=== PATIENT | male | born 1995 | race Caucasian/White ===

== ENCOUNTER 2018-04-07 00:07 | Emergency (ER) | payer SELFPAY ==
[~2018-04-07] VITALS: Ht 167.6 cm; Wt 65.0 kg
[~2018-04-07 00:07] MED LIST: Z.0.NO CURRENT MEDS
[2018-04-07] MEDS ORDERED: IOHEXOL 350 MG/ML 10 ML VIAL (for RAD DIAG) IVCONTRAST ONE (00:08)
[2018-04-07 00:11] VITALS: BP 182/87; PULSE 106; RESP 18; TEMP 98.9; O2SAT 100
[2018-04-07] MEDS ORDERED: TETANUS/DIPHTHERIA TOXOID ADULT 0.5 ML VIAL IM ONE (00:30)
--- NOTE | 2018-04-07 00:33 | PD ---
HPI Chief Complaint: Injury Time Seen by Provider: 00:24 (Jeanine Rivera MD) Time Seen by Provider: 00:24 (Kerwin Taylor) Travel History International Travel<30 days: No Contact w/Intl Traveler<30days: No Traveled to known affect area: No (Jeanine Rivera MD) History of Present Illness HPI 23-year-old male came to the emergency room for left foot swelling after he was walking barefoot in a backyard and felt something poke into his middle toe. This happened last night. Patient woke up this morning and could not feel his middle toe and noticed significant swelling of his toe as well as the foot. The swelling has persisted. Patient does not really complain of significant pain. He is here because of the swelling. Patient denies of any fever or chills. Patient was tachycardic in triage. He is otherwise a healthy person. Patient does not recall his last tetanus shot. (Jeanine Rivera MD) History Past Medical History Narrative Medical List of his past medical, surgical, social and family history is reviewed from the nursing note Medical History: Denies Significant Hx Tetanus Vaccination: < 5 Years Influenza Vaccination: No (Jeanine iRvera MD) Past Surgical History Surgical History: No Previous Surgery (Jeanine Rivera MD) Social History Alcohol Use: Yes (twice a week) Tobacco Use: Yes (Jeanine Rivera MD) Allergies-Medications (Allergen,Severity, Reaction): Coded Allergies: No Known Allergies (Verified Allergy, Mild, 04/07/18) Comments No known drug allergies. (Jeanine Rivera MD) Reported Meds & Prescriptions Reported Meds & Active Scripts Active Deltasone (Prednisone) 20 Mg Tab 20 Mg PO BID 5 Days (Kerwin Taylor) Narrative Medication List of his home medications reviewed from the nursing note (Jeanine Rivera MD) Review of Systems Except as stated in HPI: all other systems reviewed are Neg (Jeanine Rivera MD) Physical Exam Narrative GENERAL: Awake, alert, mildest SKIN: Focused skin assessment warm/dry. Left foot dorsum swollen and slightly erythematous and warm to touch. Middle toe appears to be swollen and erythematous and there is a punctum on the medial aspect of the toe between the first and the second toe. Wound is not significantly tender. Poor foot hygiene HEAD: Atraumatic. Normocephalic. EYES: Pupils equal and round. No scleral icterus. No injection or drainage. ENT: No nasal bleeding or discharge. Mucous membranes pink and moist. NECK: Trachea midline. No JVD. CARDIOVASCULAR: Regular rate and rhythm. No murmur appreciated. RESPIRATORY: No accessory muscle use. Clear to auscultation. Breath sounds equal bilaterally. GASTROINTESTINAL: Abdomen soft, non-tender, nondistended. Hepatic and splenic margins not palpable. MUSCULOSKELETAL: No obvious deformities. No clubbing. No cyanosis. No edema. NEUROLOGICAL: Awake and alert. No obvious cranial nerve deficits. Motor grossly within normal limits. Normal speech. PSYCHIATRIC: Appropriate mood and affect; insight and judgment normal. (Jeanine Rivera MD) Data Data Last Documented VS Vital Signs Date Time Temp Pulse Resp B/P (MAP) Pulse Ox O2 Delivery O2 Flow Rate FiO2 04/07/18 00:11 98.9 106 18 182/87 (118) 100 (Kerwin Taylor) Orders Orders Foot, Limited (2vws) (04/07/18 00:25) Tetanus/Diphtheria Tox Adult (Tetanus/Di (04/07/18 00:30) Complete Blood Count With Diff (04/07/18 00:33) Basic Metabolic Panel (Bmp) (04/07/18 00:33) C-Reactive Protein (Crp) (04/07/18 00:33) Westergren Sedimentation Rate (04/07/18 00:33) Iv Access Insert/Monitor (04/07/18 00:33) Blood Culture (04/07/18 00:33) Lactic Acid (04/07/18 00:36) Wound Culture And Gram Stain (04/07/18 00:38) Ct Foot W Iv Contrast (04/07/18 ) Vancomycin Inj (Vancomycin Inj) (04/07/18 00:45) Piperacil-Tazo 4.5 Gm Premix (Zosyn 4.5 (04/07/18 01:00) Iohexol 350 Inj (Omnipaque 350 Inj) (04/07/18 00:08) Diphenhydramine Inj (Benadryl Inj) (04/07/18 03:30) Methylprednisolone So Succ Inj (Solumedr (04/07/18 03:30) Ed Discharge Order (04/07/18 03:55) (Kerwin Taylor) Labs Laboratory Tests Test 04/07/18 00:48 White Blood Count 6.7 TH/MM3 Red Blood Count 4.56 MIL/MM3 Hemoglobin 15.4 GM/DL Hematocrit 44.0 % Mean Corpuscular Volume 96.6 FL Mean Corpuscular Hemoglobin 33.8 PG Mean Corpuscular Hemoglobin Concent 35.0 % Red Cell Distribution Width 13.1 % Platelet Count 269 TH/MM3 Mean Platelet Volume 8.2 FL Neutrophils (%) (Auto) 53.5 % Lymphocytes (%) (Auto) 36.1 % Monocytes (%) (Auto) 7.6 % Eosinophils (%) (Auto) 2.5 % Basophils (%) (Auto) 0.3 % Neutrophils # (Auto) 3.6 TH/MM3 Lymphocytes # (Auto) 2.4 TH/MM3 Monocytes # (Auto) 0.5 TH/MM3 Eosinophils # (Auto) 0.2 TH/MM3 Basophils # (Auto) 0.0 TH/MM3 CBC Comment DIFF FINAL Differential Comment Erythrocyte Sedimentation Rate 3 mm/hr Blood Urea Nitrogen 15 MG/DL Creatinine 1.03 MG/DL Random Glucose 112 MG/DL Calcium Level 9.4 MG/DL Sodium Level 139 MEQ/L Potassium Level 3.8 MEQ/L Chloride Level 101 MEQ/L Carbon Dioxide Level 29.5 MEQ/L Anion Gap 9 MEQ/L Estimat Glomerular Filtration Rate 90 ML/MIN Lactic Acid Level 2.0 mmol/L C-Reactive Protein LESS THAN 0.29 MG/DL (Kerwin Taylor) [facility] Medical Decision Making Medical Screen Exam Complete: Yes Emergency Medical Condition: Yes Medical Record Reviewed: Yes Differential Diagnosis Cellulitis, allergic reaction secondary to bug bite Narrative Course 12:44 AM x-ray of the foot and CT scan has been ordered. Blood test has been ordered. Awaiting for the test results to come back. Patient will be getting IV vancomycin and Zosyn. Wound culture has been collected. Case will be signed over to the PA in the part to follow-up. (Jeanine Rivera MD) Medical Screen Exam Complete: Yes Emergency Medical Condition: Yes Medical Record Reviewed: Yes Interpretation(s) Left foot: Negative for acute fracture. No foreign body. Positive soft tissue swelling. CT left foot: No obvious abscess or space-occupying lesion. Positive soft tissue swelling. Laboratory Tests Test 04/07/18 00:48 White Blood Count 6.7 TH/MM3 Red Blood Count 4.56 MIL/MM3 Hemoglobin 15.4 GM/DL Hematocrit 44.0 % Mean Corpuscular Volume 96.6 FL Mean Corpuscular Hemoglobin 33.8 PG Mean Corpuscular Hemoglobin Concent 35.0 % Red Cell Distribution Width 13.1 % Platelet Count 269 TH/MM3 Mean Platelet Volume 8.2 FL Neutrophils (%) (Auto) 53.5 % Lymphocytes (%) (Auto) 36.1 % Monocytes (%) (Auto) 7.6 % Eosinophils (%) (Auto) 2.5 % Basophils (%) (Auto) 0.3 % Neutrophils # (Auto) 3.6 TH/MM3 Lymphocytes # (Auto) 2.4 TH/MM3 Monocytes # (Auto) 0.5 TH/MM3 Eosinophils # (Auto) 0.2 TH/MM3 Basophils # (Auto) 0.0 TH/MM3 CBC Comment DIFF FINAL Differential Comment Erythrocyte Sedimentation Rate 3 mm/hr Blood Urea Nitrogen 15 MG/DL Creatinine 1.03 MG/DL Random Glucose 112 MG/DL Calcium Level 9.4 MG/DL Sodium Level 139 MEQ/L Potassium Level 3.8 MEQ/L Chloride Level 101 MEQ/L Carbon Dioxide Level 29.5 MEQ/L Anion Gap 9 MEQ/L Estimat Glomerular Filtration Rate 90 ML/MIN Lactic Acid Level 2.0 mmol/L C-Reactive Protein LESS THAN 0.29 MG/DL Differential Diagnosis Differential diagnosis: Puncture wound, cellulitis, abscess, necrotizing fasciitis, allergic reaction Narrative Course IV access is obtained. Patient is given a liter bolus of saline, vancomycin 1300 mg IV, 4.5 g of Zosyn IV. CBC, chemistry, CRP, and sed rate. Patient's laboratory tests have been reviewed. His CRP, sed rate and venous lactate are negative. White count is normal. X-ray of the foot as well as a CT scan are unremarkable except for soft tissue swelling. I suspect that this is more of allergic reaction from possible insect bite. I do not see any signs of any localized infection. His laboratory tests refute any infectious process. The patient is given Solu-Medrol 125 mg IV and Benadryl 50 mg IV. The patient will continue Benadryl and oral prednisone at home and recheck in 48 hours. This is left foot insect bite with local reaction (Kerwin Taylor) Procedures EKG Prior to Arrival: No (Jeanine Rivera MD) Diagnosis Primary Impression: Insect bite of toe of left foot with local reaction Qualified Codes: S90.465A - Insect bite (nonvenomous), left lesser toe(s), initial encounter; W57.XXXA - Bitten or stung by nonvenomous insect and other nonvenomous arthropods, initial encounter Referrals: [facility] 2 days Patient Instructions: General Instructions Departure Forms: Tests/Procedures, Work Release Special Instructions: No work 2 days Additional Instructions: Rest. Elevation above the heart at all times. Warm compresses. Daily wound care with soap and water. 50 mg of Benadryl 4 times a day. Prednisone. Recheck with a primary care doctor or the emergency department in 48 hours. Return to the ER sooner if any problems develop or worsening symptoms. Med/Other Pt SpecificInfo: Prescription(s) given (Kerwin Taylor) Scripts Prednisone (Deltasone) 20 Mg Tab 20 MG PO BID for 5 Days, #10 TAB 0 Refills Prov: Jeanine Rivera MD 04/07/18 Disposition: 01 DISCHARGE HOME Condition: Stable Jeanine Rivera MD April 07, 2018 00:33 Kerwin Taylor April 07, 2018 04:01
[2018-04-07] MEDS ORDERED: VANCOMYCIN INJ 1,300 MG in SODIUM CHLORID 0.9% 500 ML INJ 500 ML IV ONE (00:45)
[2018-04-07] MEDS ORDERED: PIPERACIL-TAZO 4.5 GM PREMIX 100 ML IV ONE (01:00)
--- NOTE | 2018-04-07 01:10 | RADRPT ---
EXAM DATE/TIME: 04/07/2018 00:36 [facility] COMPARISON: No previous studies available for comparison. INDICATIONS : Left foot pain with swelling across the metatarsal region. MEDICAL HISTORY : None. SURGICAL HISTORY : None. ENCOUNTER: Initial ACUITY: 2 days PAIN SCORE: 8/10 LOCATION: Left foot FINDINGS: A limited two-view examination of the left foot was obtained and demonstrates no evidence of fracture or malalignment. Metatarsals and phalanges are intact. There is mild soft tissue prominence over the dorsum of the foot with no radiopaque foreign body. CONCLUSION: Mild soft tissue swelling with no underlying bony abnormality. Casey Mary MD on April 07, 2018 at 1:07 Board Certified Radiologist. This report was verified electronically.
[2018-04-07 01:39] LABS: AUTOMATED NEUTROPHIL # 3.6 TH/MM3 (1.8-7.7); BASOPHIL % 0.3 % (0.0-2.0); EOSINOPHIL # 0.2 TH/MM3 (0-0.4); EOSINOPHIL % 2.5 % (0.0-4.0); HEMOGLOBIN 15.4 GM/DL (13.0-17.0); LYMPH % 36.1 % (9.0-44.0); LYMPHOCYTE # 2.4 TH/MM3 (1.0-4.8); MEAN CELL VOLUME 96.6 FL (80.0-100.0); MEAN CORPUSCULAR HEMOGLOBIN 33.8 PG (27.0-34.0); MEAN PLATELET VOLUME 8.2 FL (7.0-11.0); MONO % 7.6 % (0.0-8.0); MONOCYTE # 0.5 TH/MM3 (0-0.9); NEUT % 53.5 % (16.0-70.0); PLATELET COUNT 269 TH/MM3 (150-450); RED BLOOD COUNT 4.56 MIL/MM3 (4.50-5.90); RED CELL DISTRIBUTION WIDTH 13.1 % (11.6-17.2); WHITE BLOOD COUNT 6.7 TH/MM3 (4.0-11.0)
[2018-04-07 02:00] LABS: BICARBONATE 29.5 MEQ/L (21.0-32.0); BLOOD UREA NITROGEN 15 MG/DL (7-18); C-REACTIVE PROTEIN LESS THAN 0.29 MG/DL (0.00-0.30); CALCIUM 9.4 MG/DL (8.5-10.1); CHLORIDE 101 MEQ/L (98-107); CREATININE 1.03 MG/DL (0.60-1.30); GLOMERULAR FILTRATION RATE 90 ML/MIN (>89); GLUCOSE,RANDOM 112 MG/DL (74-106); SODIUM (NA) 139 MEQ/L (136-145)
--- NOTE | 2018-04-07 02:48 | RADRPT ---
EXAM DATE/TIME: 04/07/2018 02:18 [facility] COMPARISON: No previous studies available for comparison. INDICATIONS : Left foot injury; possible cellulitis. IV CONTRAST: 70 cc Omnipaque 350 (iohexol) IV RADIATION DOSE: 7.29 CTDIvol (mGy) MEDICAL HISTORY : None SURGICAL HISTORY : None. ENCOUNTER: Initial ACUITY: 1 day PAIN SCALE: 7/10 LOCATION: Left foot TECHNIQUE: Volumetric scanning of the foot was performed. Using automated exposure control and adjustment of th e mA and/or kV according to patient size, radiation dose was kept as low as reasonably achievable to obtain optimal diagnostic quality images. DICOM format image data is available electronically for re view and comparison. FINDINGS: BONES: No evidence of fracture. Alignment is within normal limits. JOINTS: No evidence of joint narrowing or effusion. SOFT TISSUES: Muscles, tendons, and neurovascular structures are grossly unremarkable. No evidence of mass, organiz ed fluid collection, or foreign body. There is soft tissue swelling in the subcutaneous fat greatest along the dorsal lateral midfoot. CONCLUSION: 1. No acute fracture or malalignment. 2. Soft tissue swelling and subcutaneous fat greatest along the dorsal lateral midfoot. No radiopaque foreign bodies identified. Casey Mary MD on April 07, 2018 at 2:42 Board Certified Radiologist. This report was verified electronically.
[2018-04-07] MEDS ORDERED: diphenhydrAMINE HCL 50 MG/ML VIAL IV PUSH ONE (03:30)
[2018-04-07] MEDS ORDERED: methylPREDNISolone SOD SUCC 125 MG/2 ML VIAL IV PUSH ONE (03:30)
[2018-04-07] MEDS ORDERED: PRED-503 PO (03:55)
== END 2018-04-07 04:37 | disposition home or self-care (01) ==
LOC: NEPD 00:07
DX: S90.465A Insect bite (nonvenomous), left lesser toe(s), initial encounter (principal); R00.0 Tachycardia, unspecified; Z72.0 Tobacco use; Z23 Encounter for immunization; W57.XXXA Bitten or stung by nonvenomous insect and other nonvenomous arthropods, initial encounter
CPT/HCPCS: 73620; 73701; 80048; 83605; 85025; 85652; 86140; 87040; 87070; 90471; 90714; 96365; 96366; 96367; 96375; 99285; J1200; J2543; J2930; J3370; J7040; Q9967